=== PATIENT | male | born 1955 | race Caucasian/White ===

== ENCOUNTER 2022-05-14 01:04 | Emergency (ER) | payer OTHER, SELFPAY ==
[2022-05-14 01:05] VITALS: BP 178/88; PULSE 52; RESP 16; TEMP 36.9; O2SAT 100; BMI 21.4
--- NOTE | 2022-05-14 01:18 | EDS_ITS ---
HPI History of Present Illness Chief Complaint: Bite Informant: patient Narrative Narrative: Patient presents with a tick in his right posterior neck. Patient states he went fishing on Sunday. He believes that is when he got the tick bite. It was noted late Sunday night. His daughter tried to remove it but states only part of it was able to be removed. [facility] Medical History (Reviewed 05/14/22 @ 01:[address] Zo Sorto MD) High cholesterol Hypertension Medical History no medical history Home Medications doxycycline monohydrate 100 mg capsule 100 mg PO BID #28 caps 05/14/22 [Rx Last Taken Unknown] lovastatin 40 mg tablet 40 mg PO DAILY 05/14/22 [History Last Taken Unknown] ramipril 5 mg capsule 5 mg PO DAILY 05/14/22 [History Last Taken Unknown] Allergy/AdvReac Type Severity Reaction Status Date / Time No Known Allergies Allergy Verified 05/14/22 01:05 EDT Social History (Reviewed 05/14/22 @ 01:[address] Zo Sorto MD) Smoking Status: Current every day smoker tobacco type: cigarettes ROS ROS ED Constitutional Constitutional ED: Denies chills or fever(s) Eyes Eyes: Denies change in vision or discharge from eye(s) ENT ENT ED: Denies discharge from eye(s), rhinorrhea or sore throat Cardiovascular Cardiovascular: Denies chest pain or palpitations Respiratory/Chest Respiratory/Chest: Denies cough or dyspnea Gastrointestinal Gastrointestinal: Denies abdominal pain, nausea or vomiting Genitourinary Genitourinary ED: Denies dysuria Musculoskeletal Musculoskeletal: Denies back pain or extremity pain Integumentary Reports other Details: Tick bite right posterior neck ; Denies Abrasions or rash Neurologic Neurologic: Denies headache(s) or weakness Psychiatric Psychiatric: Denies anxiety or depression Allergic/Immunologic Allergic/Immunologic ED: Denies lip swelling or urticaria EXAM Physical Exam Const Vital Signs: 05/14/22 01:05 EDT Temperature 98.5 F Temperature Source Oral Pulse Rate 52 L Respiratory Rate 16 Blood Pressure 178/88 H Blood Pressure Mean 118 Pulse Ox 100 Oxygen Delivery Method Room Air Positive well nourished and well developed General Appearance ED: well developed HEENT Reports moist mucous membranes Eyes PERRL and EOMs intact bilaterally Neck Neck Narrative: Small dark discoloration to the right posterior lateral neck. Unfortunately there is a small area of bleeding from prior attempts to remove the tick. Chest Wall inspection of chest normal and palpation of chest normal Resp normal respiratory effort and clear to auscultation bilaterally Cardio regular rate and regular rhythm GI non-tender Palpation: soft Extremity normal to inspection Neuro oriented x3 and no sensory deficits noted Motor Exam: strength 5/5 throughout Psych mental status grossly normal MDM MDM Treatment and Re-Evaluation Narrative: 1 cc 1% lidocaine infused locally to the site. Following this needle-tipped forceps were used to grab any remaining tissue and remove it. Wound is cleansed. Patient be treated with doxycycline to help prevent infection. Discharge Plan Triage Chief Complaint: Bite ED Provider: Zo Sorto Dx/Rx/DC Orders Clinical Impression: Tick bite Instructions: ED Tick Bite, Abx Tx Prescriptions: New doxycycline monohydrate 100 mg capsule 100 mg PO BID Qty: 28 0RF No Action lovastatin 40 mg Tablet 40 mg PO DAILY ramipril 5 mg Capsule 5 mg PO DAILY Primary Care Provider: [facility] Referrals: Benji Morton MD [Non-Staff] - 1-2 Weeks Disposition Disposition: Home, Self Care
[2022-05-14] MEDS: Lidocaine 1% (20 ml mdv) 20 ML Vial INFILT (01:22)
[2022-05-14 01:35] VITALS: O2SAT 98
[2022-05-14] MEDS: Doxycycline 100 MG CAPSULE PO (01:38)
== END 2022-05-14 01:38 | disposition home or self-care (01) ==
PROVIDERS: Emergency Provider Emergency Medicine; Visit Provider Emergency Medicine
DX: S10.86XA Insect bite of other specified part of neck, initial encounter (principal); I10 Essential (primary) hypertension; F17.210 Nicotine dependence, cigarettes, uncomplicated; E78.00 Pure hypercholesterolemia, unspecified; Z79.899 Other long term (current) drug therapy; W57.XXXA Bitten or stung by nonvenomous insect and other nonvenomous arthropods, initial encounter
CPT/HCPCS: 99283

== ENCOUNTER 2022-08-13 17:37 | Inpatient (IN) | payer OTHER, SELFPAY ==
[2022-08-13 17:38] VITALS: BP 147/91; PULSE 98; RESP 19; TEMP 35.9; O2SAT 99; BMI 22.3
--- NOTE | 2022-08-13 19:34 | EX.ED.DYSGE1 ---
HPI <MARANDA Prasad - Last Filed: 08/13/22 22:05> History of Present Illness Chief Complaint: GI Bleed Narrative Narrative: Patient states he ate a fish sandwich last night and woke up around 2 AM started to have diarrhea. He is nauseous but no vomiting. He had diarrhea throughout the day and around 5 PM noticed bright red blood with it. No clots or mucus. He has some intermittent crampy abdominal pain. He has had decreased fluid intake. He is not on aspirin or blood thinners. Reports a normal colonoscopy 10 years ago. PFSH <MARANDA Prasad - Last Filed: 08/13/22 22:05> [facility] Medical History (Reviewed 05/14/22 @ 01:[address] Zo Sorto MD) High cholesterol Hypertension Medical History no medical history Home Medications lovastatin 40 mg tablet 40 mg PO DAILY 05/14/22 [History Last Taken Unknown] ramipril 5 mg capsule 5 mg PO DAILY 05/14/22 [History Last Taken Unknown] Allergy/AdvReac Type Severity Reaction Status Date / Time No Known Allergies Allergy Verified 08/13/22 17:41 Social History (Reviewed 05/14/22 @ 01:[address] Zo Sorto MD) Smoking Status: Current every day smoker tobacco type: cigarettes ROS <MARANDA Prasad - Last Filed: 08/13/22 22:05> ROS ED ROS Narrative Constitutional: Negative for fever, chills, malaise. CVS: Negative for palpitations, chest pain, syncope. Respiratory: Negative for shortness of breath, cough. GI: Positive for abdominal pain, nausea, rectal bleeding. No melena. : Negative for dysuria. Skin: Negative for rash, abscess, or wound. Musc: Negative for joint pain, swelling, trauma. EXAM <MARANDA Prasad - Last Filed: 08/13/22 22:05> Physical Exam Narrative Exam Narrative: CONST: Patient sitting in no acute distress. NECK: Normal inspection. RESP: No respiratory distress, CTAB. CVS: Regular rate and rhythm, no murmur, no gallop. ABD: Soft With bilateral lower quadrant tenderness, no guarding or rebound, nondistended. Normal bowel sounds x4. SKIN: Color normal, no rash, warm, dry, intact. EXTREMITIES: Normal appearance, no pedal edema. NEURO: Oriented x4. PSYCH: Normal affect. Const Vital Signs: 08/13/22 17:38 08/13/22 19:37 08/13/22 21:37 Temperature 96.7 F L Temperature Source Temporal Pulse Rate 98 Respiratory Rate 19 H 18 18 Blood Pressure 147/91 H Blood Pressure Mean 109 Pulse Ox 99 Oxygen Delivery Method Room Air <Dr. Emerson Rodriguez MD - Last Filed: 08/13/22 22:37> Physical Exam Const Vital Signs: 08/13/22 17:38 08/13/22 19:37 08/13/22 21:37 Temperature 96.7 F L Temperature Source Temporal Pulse Rate 98 Respiratory Rate 19 H 18 18 Blood Pressure 147/91 H Blood Pressure Mean 109 Pulse Ox 99 Oxygen Delivery Method Room Air MDM <MARANDA Prasad - Last Filed: 08/13/22 22:05> MDM MDM Narrative Medical decision making narrative: History gathered from: Patient, Patient thinks he ate bad food last night and has had nausea and diarrhea throughout the day. He started having bright red rectal bleeding and some diffuse crampy abdominal pain. He appears well and nontoxic with normal vital signs. He has mild bilateral lower quadrant tenderness but no guarding or rebound. Normal bowel sounds. On rectal exam there was trace bright red blood but no stool present. No active bleeding. He was treated with IV fluids and blood work will be obtained to check for anemia or electrolyte derangement. CBC shows white count of 13.0, normal hemoglobin at 15.0. He has normal electrolytes and renal function. During the attendings evaluation he used an anoscope and the patient started to have more brisk bright red bleeding. A CT scan will be obtained along with a lactate to rule out ischemic colitis. CT shows colitis of the descending colon with no evidence of perforation or abscess. With continued abdominal pain and rectal bleeding this is concerning for early ischemic colitis. Patient was treated with IV fluids, Zosyn, morphine and Zofran and will be admitted. Case discussed with the hospitalist. Lab Data Attestation: I reviewed the patient's lab results. Labs: Laboratory Results - last 24 hr 08/13/22 08/13/22 08/13/22 19:29 19:29 20:48 WBC 13.0 H RBC 4.71 Hgb 15.0 Hct 45.4 MCV 96.4 H MCH 31.8 MCHC 33.0 RDW Std Deviation 46.2 H RDW Coeff of Tasha 12.8 Plt Count 297 MPV 10.7 Immature Gran % (Auto) 0.500 Neut % (Auto) 64.5 Lymph % (Auto) 25.5 [place] % (Auto) 7.8 Eos % (Auto) 1.1 Baso % (Auto) 0.6 Absolute Neuts (auto) 8.4 H Absolute Lymphs (auto) 3.31 Nucleated RBC % 0 Sodium 141 Potassium 3.6 Chloride 108 H Carbon Dioxide 26.0 Anion Gap 7 BUN 11 Creatinine 0.98 Estim Creat Clear Calc 77.14 Est GFR (MDRD) Af Amer 99 Est GFR (MDRD) Non-Af 82 BUN/Creatinine Ratio 11.3 Glucose 102 Lactic Acid 1.0 Calcium 9.3 Radiography Diagnostic Testing: Clinical Impression(s) from Imaging Studies Abdomen/Pelvis CT 08/13/22 20:15 IMPRESSION: Findings of a colitis affecting the descending colon, moderate in severity. No evidence for perforation or abscess. No active extravasation of IV contrast into the bowel lumen. Electronically Signed: Herbie Jimenez MD at 21:54 EST , <Dr. Emerson Rodriguez MD - Last Filed: 08/13/22 22:37> [facility] Narrative Medical decision making narrative: History gathered from: Patient, Patient thinks he ate bad food last night and has had nausea and diarrhea throughout the day. He started having bright red rectal bleeding and some diffuse crampy abdominal pain. He appears well and nontoxic with normal vital signs. He has mild bilateral lower quadrant tenderness but no guarding or rebound. Normal bowel sounds. On rectal exam there was trace bright red blood but no stool present. No active bleeding. He was treated with IV fluids and blood work will be obtained to check for anemia or electrolyte derangement. CBC shows white count of 13.0, normal hemoglobin at 15.0. He has normal electrolytes and renal function. During the attendings evaluation he used an anoscope and the patient started to have more brisk bright red bleeding. A CT scan will be obtained along with a lactate to rule out ischemic colitis. CT shows colitis of the descending colon with no evidence of perforation or abscess. With continued abdominal pain and rectal bleeding this is concerning for early ischemic colitis. Patient was treated with IV fluids, Zosyn, morphine and Zofran and will be admitted. Case discussed with the hospitalist. Deep I have personally performed a face to face assessment of the patient and have reviewed the ANTONIA Note. I performed a substantive portion of the visit including all aspects of the following. My kessler findings include: History is remarkable for diarrhea. He then developed lower abdominal pain with bloody diarrhea. Patient does have history of hemorrhoids. He has not noted any clots. He denies history of ulcerative colitis or Crohn's disease. He denies fever or chills. He does endorse nausea without vomiting. He is not on an anticoagulant. He denies allergy to any antibiotics. Exam is elevated blood pressure reading and temperature 96.7. HEENT exams rectal dry mucosa. Patient does have bilateral lower quadrant bowel pain with mild guarding. There is no peritoneal findings. Rectal exam revealed no fissures, fistulas or hemorrhoids. Anoscopy was performed. Anoscopy reveals no evidence of acute hemorrhoids. There was bloody mucoid material noted about the scope and poured out of his rectum. Medical Decision Making concern patient has ischemic colitis. This may also represent infectious diarrhea with colitis. Will treat with Zosyn. CT was obtained. Blood work was obtained as well. White count is elevated. There is no shift. CO2 anion gap is normal. Renal functions normal. Lactate is normal. Other additions or changes: Dr. Gallito Thompson was consulted and the hospitalist made aware. Patient be admitted to the hospitalist. Dr. Gallito Thompson requested n.p.o. and to continue antibiotics. Lab Data Labs: Laboratory Results - last 24 hr 08/13/22 08/13/22 08/13/22 19:29 19:29 20:48 WBC 13.0 H RBC 4.71 Hgb 15.0 Hct 45.4 MCV 96.4 H MCH 31.8 MCHC 33.0 RDW Std Deviation 46.2 H RDW Coeff of Tasha 12.8 Plt Count 297 MPV 10.7 Immature Gran % (Auto) 0.500 Neut % (Auto) 64.5 Lymph % (Auto) 25.5 [place] % (Auto) 7.8 Eos % (Auto) 1.1 Baso % (Auto) 0.6 Absolute Neuts (auto) 8.4 H Absolute Lymphs (auto) 3.31 Nucleated RBC % 0 Sodium 141 Potassium 3.6 Chloride 108 H Carbon Dioxide 26.0 Anion Gap 7 BUN 11 Creatinine 0.98 Estim Creat Clear Calc 77.14 Est GFR (MDRD) Af Amer 99 Est GFR (MDRD) Non-Af 82 BUN/Creatinine Ratio 11.3 Glucose 102 Lactic Acid 1.0 Calcium 9.3 Radiography Diagnostic Testing: Clinical Impression(s) from Imaging Studies Abdomen/Pelvis CT 08/13/22 20:15 IMPRESSION: Findings of a colitis affecting the descending colon, moderate in severity. No evidence for perforation or abscess. No active extravasation of IV contrast into the bowel lumen. Electronically Signed: Herbie Jimenez MD at 21:54 EST Reading Location ID and State: [address] [place] [address] Tel , Service support , <Dr. Emerson Rodriguez MD - Last Filed: 08/13/22 22:37> Other Procedures Procedure(s): Anoscope was performed. There is no evidence of bleeding from hemorrhoids. Blood was above the anoscope. The rectal mucosa appeared normal. Discharge Plan Triage Chief Complaint: GI Bleed ED Midlevel Provider: Yuki Lama ED Provider: Emerson Rodriguez Dx/Rx/DC Orders Clinical Impression: Colitis with rectal bleeding, Abdominal pain Prescriptions: No Action lovastatin 40 mg Tablet 40 mg PO DAILY ramipril 5 mg Capsule 5 mg PO DAILY [facility] [Primary Care Provider] - Disposition Disposition: Acute Care Hospital [facility]
[2022-08-13 19:37] VITALS: RESP 18
[2022-08-13 19:41] LABS: Absolute Lymphocyte Count 3.31 X10^3/uL (0.83-4.51); Absolute Neutrophil Count 8.4 X10^3/uL (2.0-7.7); Basophil# 0.08 X10^3/uL; Basophil% 0.6 % (0-1); Eosinophil# 0.14 X10^3/uL; Eosinophils% 1.1 % (0-5); Hematocrit 45.4 % (40-54); Lymphocyte # 3.31 X10^3/ul (0.83-4.51); Lymphocyte % 25.5 % (19-41); Mean Corpuscular Hgb 31.8 pg (27.0-32.0); Mean Corpuscular Volume 96.4 fL (80-94); Mean Platelet Vol. 10.7 fl (6.2-12.0); Monocyte# 1.01 X10^3/uL; Monocyte% 7.8 % (0-10); NRBC Flagged by Analyzer 0 % (0-5); Neutrophil % 64.5 % (47-70); Platelet Count 297 K/mm3 (150-450); RBC Distribution Width CV 12.8 % (11.6-14.6); RBC Distribution Width SD 46.2 fl (35.1-43.9); Red Blood Count 4.71 M/mm3 (4.6-6.2)
[2022-08-13 20:05] LABS: Anion Gap 7 (5-15); BUN 11 mg/dL (7-18); BUN/Creat Ratio 11.3 RATIO (10-20); Calcium,Total 9.3 mg/dL (8.5-10.1); Chloride 108 mmol/L (98-107); Creatinine, Serum 0.98 mg/dL (0.70-1.30); EST Glomerular Filtration Rate 82 mL/min (>60); Est Glom Filt Rate - Afr Amer 99 mL/min (>60); Estimated Creatinine Clearance 77.14 ml/min; Glucose 102 mg/dL (74-106); Potassium 3.6 mmol/L (3.5-5.1); Sodium Level 141 mmol/L (136-145)
--- NOTE | 2022-08-13 20:15 | CT_ITS ---
EXAM: CT ABDOMEN AND PELVIS WITH INTRAVENOUS CONTRAST CLINICAL INDICATION: abdominal pain TECHNIQUE: Helically acquired images were obtained of the abdomen and pelvis with intravenous contrast. This CT exam was performed using one or more of the following dose reduction techniques: automated exposure control, adjustment of the mA and/or kV according to patient size, and/or use of iterative reconstruction technique. This report was created using [employer] report generation technology. CONTRAST: IV 100mL Isovue-370 RADIATION DOSE: Total DLP: 671.03 mGy-cm. COMPARISON: None. FINDINGS: LOWER THORAX: Evaluation of lung bases shows mild pulmonary emphysema and minimal dependent atelectasis. Minimal subpleural fibrotic changes in the lingula and right middle lobe. No pleural effusion. Mild coronary artery calcification is visualized. No significant pericardial effusion. ABDOMEN: LIVER: Mild-moderate fatty infiltration of the liver. Right hepatic lobe measures 17 cm in cephalocaudal dimension. The portal veins enhance normally. GALLBLADDER AND BILE DUCTS: Unremarkable. No calcified gallstones. No gallbladder distention or wall edema. No intra- or extrahepatic biliary ductal dilation. PANCREAS: Unremarkable. No focal cystic or solid mass. SPLEEN: Unremarkable. Normal size without focal cystic or solid mass. ADRENALS: Unremarkable. No nodules. KIDNEYS AND URETERS: Unremarkable. Normal renal size and position. No hydronephrosis. No renal or obstructing ureteral stones. STOMACH AND BOWEL: No gastric mural thickening, periduodenal inflammatory changes or distended small bowel loops. There is circumferential hypodense thickening of the wall of the descending colon, with the wall being moderately thickened, nodular and edematous, and with mild pericolonic stranding indicating a left-sided colitis. No pneumatosis or extraluminal air. No nonenhancing bowel wall. No findings of diverticulitis or small bowel obstruction. PELVIS: APPENDIX: Normal. No evidence of acute appendicitis. BLADDER: No bladder wall thickening. REPRODUCTIVE: Prostate gland measures 4 cm in transverse diameter and minimally indents the base of the urinary bladder. ABDOMEN and PELVIS: INTRAPERITONEAL SPACE: No free air or ascites. BONES/JOINTS: T10/11 disc space is partially fused. Lower thoracic and lumbar degenerative disc disease. Lower lumbar facet arthritis. No suspicious lytic or blastic abnormality. SOFT TISSUES: Unremarkable. No discrete abdominal or pelvic wall hernia. VASCULATURE: Calcific abdominal aorta and its branches. Calcified and noncalcified plaque causes 50-69% stenosis of the SMA. CJ enhances normally. LYMPH NODES: Unremarkable. No enlarged lymph nodes. CT/Abdomen/Pelvis W IV Cont ONLY IMPRESSION: Findings of a colitis affecting the descending colon, moderate in severity. No evidence for perforation or abscess. No active extravasation of IV contrast into the bowel lumen. Electronically Signed: Herbie Jimenez MD at 21:54 EST ,
[2022-08-13] MEDS: 0.9% Normal Saline 1,000 ML 999 ML IV (21:21)
[2022-08-13 21:37] VITALS: RESP 18
[2022-08-13] MEDS: Ondansetron 4 MG/2 ML Vial IV (22:22)
[2022-08-13] MEDS: Morphine 4 MG/ML Syringe IV (22:22)
[2022-08-13 22:23] VITALS: BP 133/70; PULSE 68; RESP 18; TEMP 36.4; O2SAT 95
--- NOTE | 2022-08-13 22:29 | PCM.HP.STD ---
HPI - General General Date of Admission: 08/13/22 Date of Service: 08/13/22 Chief Complaint: Bloody stools - 1 day HPI Narrative KELLI ÁLVAREZ, is a 67 M who presents with the above. Patient has past medical history of hypertension, hyperlipidemia, chronic smoker, who was in his usual state of health until today when he started having bloody stools associated with abdominal cramps. Patient stated that yesterday he and his had fish sandwiches. This morning, he started having abdominal cramps and started having bloody stools. He denied any fever or chills. His has no symptoms. He denied nausea, vomiting, dizziness or palpitations or chest pain or progressive shortness of breath. Emergency room physician performed an anoscopy that showed no evidence of internal hemorrhoids. Bloody mucoid material was also noted around the scope and pulled out of his rectum. In the emergency room, blood pressure is 147/91, heart rate 98 respiratory rate was 19, temperature 96.7 F, oxygen sat is 97% on room air. WBC count is 13.0, with neutrophilia, hemoglobin 15.0, platelet count 297. BMP is unremarkable with BUN 11, Cr 0.98. CT of the abdomen pelvis shows mild pulmonary emphysema/atelectasis, mild/moderate fatty infiltration of the liver, thickening of the descending colon with stranding suggestive of left-sided colitis. [facility] Medical History High cholesterol Hypertension Home Medications lovastatin 40 mg tablet 40 mg PO DAILY 05/14/22 [History Last Taken Unknown] ramipril 5 mg capsule 5 mg PO DAILY 05/14/22 [History Last Taken Unknown] Allergy/AdvReac Type Severity Reaction Status Date / Time No Known Allergies Allergy Verified 08/13/22 17:41 Family History (Updated 08/14/22 @ 00:[address] Shanel Barrera MD) Father Heart disease Mother CVA (cerebral vascular accident) Surgical History no surgical history no surgical history Social History (Updated 08/14/22 @ 00:[address] Shanel Barrera MD) household members: spouse Smoking Status: Current every day smoker tobacco type: cigarettes alcohol intake: never substance use type: does not use ROS ROS Narrative Constitutional: Denies: Anorexia, Chills, Fever, Night Sweats, Weight Change Eyes: Denies: Blurred vision, Cataracts, Conjunctivae Inflammation, Pain, Redness, Vision Change HEENT: Denies: Difficulty Hearing, Difficulty Swallowing, Head Aches, Hearing Changes, Sinus Congestion, Sinus Drainage Cardiovascular: Denies: Chest Pain, Orthopnea, Palpitations Respiratory: Denies: Cough, Shortness of breath at rest, Sputum production Gastrointestinal: See HPI Genitourinary: Denies: Dysuria Musculoskeletal: Denies: Joint Pain, Joint stiffness, Joint swelling, Joint Tenderness Skin: Denies: Rash, Wounds Neurological: Denies: Numbness, Tingling, Focal weakness Vital Signs Vital Signs Vital Signs: 08/13/22 17:38 08/13/22 19:37 08/13/22 21:37 Temperature 96.7 F L Temperature Source Temporal Pulse Rate 98 Respiratory Rate 19 H 18 18 Blood Pressure 147/91 H Blood Pressure Mean 109 Pulse Ox 99 Oxygen Delivery Method Room Air Weight Weight: 72.575 kg Body Mass Index (BMI) 22.3 Physical Exam Narrative Physical exam: General: Alert, Oriented x3, Cooperative HEENT: Atraumatic Oral: Moist Mucosa Neck: Supple Lungs: Clear to auscultation Cardiovascular: HS I+II, regular, no murmurs Abdomen: Bowel Sounds Present, Soft, Non Tender Extremities: No edema Skin: No rashes, No breakdown Neurological: Grossly intact Psych/Mental Status: Appropriate Results Lab / Micro Data Result Diagrams: 08/13/22 19:29 08/13/22 19:29 Labs: Laboratory Results - last 24 hr 08/13/22 19:29: WBC 13.0 H, RBC 4.71, Hgb 15.0, Hct 45.4, MCV 96.4 H, MCH 31.8, MCHC 33.0, RDW Std Deviation 46.2 H, RDW Coeff of Tasha 12.8, Plt Count 297, MPV 10.7, Immature Gran % (Auto) 0.500, Neut % (Auto) 64.5, Lymph % (Auto) 25.5, [place] % (Auto) 7.8, Eos % (Auto) 1.1, Baso % (Auto) 0.6, Absolute Neuts (auto) 8.4 H, Absolute Lymphs (auto) 3.31, Nucleated RBC % 0 08/13/22 19:29: Sodium 141, Potassium 3.6, Chloride 108 H, Carbon Dioxide 26.0, Anion Gap 7, BUN 11, Creatinine 0.98, Estim Creat Clear Calc 77.14, Est GFR (MDRD) Af Amer 99, Est GFR (MDRD) Non-Af 82, BUN/Creatinine Ratio 11.3, Glucose 102, Calcium 9.3 08/13/22 20:48: Lactic Acid 1.0 Radiology Impression Abdomen/Pelvis CT 08/13/22 20:15 IMPRESSION: Findings of a colitis affecting the descending colon, moderate in severity. No evidence for perforation or abscess. No active extravasation of IV contrast into the bowel lumen. Electronically Signed: Herbie Jimenez MD at 21:54 EST , Assessment & Plan Assessment/Plan (1) Colitis with rectal bleeding: (2) Abdominal pain: PLAN: Plan 1. Acute lower GI secondary to acute left sided colitis Seen on CT abdomen/pelvis. Hemoglobin is 15.0. Differentials include infectious etiologies, ischemic colitis versus inflammatory bowel disease Admit to PCU, IV fluids, general surgery?consulted from the ED, stool for enteric panel, Giardia, lactoferrin to rule out infectious etiology Keep n.p.o., trend H&H, IV PPI BID, Continue IV Zosyn started in ED 2. Hyperlipidemia, continue on statin 3. Hypertension, BP is relatively controlled, will hold Ramipril for now Will monitor BP 4. Chronic smoker, advised to quit, continue replacement 5. DVT PPx- SCDs Total time spent: 75 minutes of which more > 50% was spent in taking history and physical examining patient, discussing with emergency room physician, discussing plan of care, and answering questions from patient and at the bedside. Charges/Coding Visit Charges Inpatient E&M: 61177 Init Hosp L3
[2022-08-14 00:30] VITALS: BMI 22.0
[2022-08-14] MEDS: 0.9% Normal Saline 1,000 ML 125 ML IV (00:54)
[2022-08-14 01:05] VITALS: BP 122/70; PULSE 52; RESP 18; TEMP 36.6; O2SAT 94
[2022-08-14 03:44] LABS: Basophil# 0.07 X10^3/uL; Basophil% 0.6 % (0-1); Eosinophil# 0.28 X10^3/uL; Eosinophils% 2.6 % (0-5); Hematocrit 39.7 % (40-54); Hemoglobin 13.1 g/dL (13.0-16.5); Lymphocyte % 31.5 % (19-41); Mean Corpuscular Volume 96.8 fL (80-94); Mean Platelet Vol. 10.8 fl (6.2-12.0); Monocyte% 9.3 % (0-10); NRBC Flagged by Analyzer 0 % (0-5); Neutrophil # 5.98 X10^3/uL (2.7-7.7); Neutrophil % 55.5 % (47-70); Platelet Count 250 K/mm3 (150-450); RBC Distribution Width CV 12.9 % (11.6-14.6); RBC Distribution Width SD 45.6 fl (35.1-43.9); White Blood Count 10.8 K/mm3 (4.4-11.0)
[2022-08-14 04:03] LABS: AST(SGOT) 10 U/L (15-37); Alanine Aminotransfer ALT/SGPT 21 U/L (16-61); Albumin, Serum 3.1 g/dL (3.2-5.0); Alkaline Phosphatase 61 U/L (45-117); Anion Gap 5 (5-15); BUN 9 mg/dL (7-18); BUN/Creat Ratio 10.2 RATIO (10-20); Calcium,Total 8.3 mg/dL (8.5-10.1); Chloride 114 mmol/L (98-107); Creatinine, Serum 0.89 mg/dL (0.70-1.30); EST Glomerular Filtration Rate 92 mL/min (>60); Est Glom Filt Rate - Afr Amer 111 mL/min (>60); Estimated Creatinine Clearance 83.92 ml/min; Glucose 95 mg/dL (74-106); Protein, Total 6.1 g/dL (6.4-8.2); Sodium Level 143 mmol/L (136-145)
[2022-08-14 05:49] VITALS: BP 108/60; PULSE 50; RESP 18; TEMP 36.4; O2SAT 98
--- NOTE | 2022-08-14 07:37 | EX.PCM.CON.S ---
Assessment & Plan Assessment/Plan (1) Colitis with rectal bleeding: PLAN: Patient has CT scan which showed left-sided colitis and the patient has been having rectal bleeding for 1 day. Patient does not have any abdominal pain on palpation for me. I explained that this is likely ischemic colitis given the calcifications of the takeoff of his vessels. I recommend 24 hours of bowel rest and then likely start clear liquids tomorrow. I advised him that we will also continue antibiotics for prophylaxis and continue to observe. I did discuss possible surgery if anything were to worsen. Patient says he is due for colonoscopy and I will provide an outpatient colonoscopy in a few weeks as long as is resolved successfully. Recommend n.p.o. for today and start clear liquids tomorrow if doing well. Continue to observe hemoglobin. Meek Thompson MD Pager: [facility] [address] [place] [address], [address] [place] [address] Office: HPI Consult Data Date of Consult: 08/14/22 HPI Narrative HPI Narrative: KELLI ÁLVAREZ, is a 67 M who presents with blood per rectum. The patient does not note any abdominal pain. He says the blood started yesterday. He has never had this in the past. He denies any nausea or vomiting or fevers or chills. [facility], [facility] Medical History High cholesterol Hypertension Home Medications lovastatin 40 mg tablet 40 mg PO DAILY 05/14/22 [History Last Taken Unknown] ramipril 5 mg capsule 5 mg PO DAILY 05/14/22 [History Last Taken Unknown] Allergy/AdvReac Type Severity Reaction Status Date / Time No Known Allergies Allergy Verified 08/13/22 17:41 Family History (Updated 08/14/22 @ 00:[address] Shanel Barrera MD) Father Heart disease Mother CVA (cerebral vascular accident) Surgical History no surgical history Social History (Updated 08/14/22 @ 00:[address] Shanel Barrera MD) household members: spouse Smoking Status: Current every day smoker tobacco type: cigarettes alcohol intake: never substance use type: does not use ROS Constitutional Constitutional: Denies anorexia, chills or fatigue ENT HEENT: Denies abnormal hearing Cardiovascular Cardiovascular: Denies chest pain Respiratory/Chest Respiratory/Chest: Denies cough or dyspnea Gastrointestinal Gastrointestinal: Reports rectal bleeding; Denies abdominal pain, constipation, diarrhea, nausea or vomiting Genitourinary Genitourinary: Denies change in urinary stream Musculoskeletal Musculoskeletal: Denies abnormal gait Integumentary Integumentary: Denies jaundice Neurologic Neurologic: Denies abnormal gait Psychiatric Psychiatric: Denies anxiety Endocrine Endocrinology: Denies flushing Physical Exam Const alert and oriented x3 HEENT normocephalic Eyes PERRL Resp normal respiratory effort Cardio Rate: regular rate Rhythm: regular rhythm GI soft to palpation, non-tender and non-distended Lab / Micro Data Result Diagrams: 08/14/22 03:05 08/14/22 03:05 Labs: Laboratory Results - last 24 hr 08/13/22 19:29: WBC 13.0 H, RBC 4.71, Hgb 15.0, Hct 45.4, MCV 96.4 H, MCH 31.8, MCHC 33.0, RDW Std Deviation 46.2 H, RDW Coeff of Tasha 12.8, Plt Count 297, MPV 10.7, Immature Gran % (Auto) 0.500, Neut % (Auto) 64.5, Lymph % (Auto) 25.5, [place] % (Auto) 7.8, Eos % (Auto) 1.1, Baso % (Auto) 0.6, Absolute Neuts (auto) 8.4 H, Absolute Lymphs (auto) 3.31, Nucleated RBC % 0 08/13/22 19:29: Sodium 141, Potassium 3.6, Chloride 108 H, Carbon Dioxide 26.0, Anion Gap 7, BUN 11, Creatinine 0.98, Estim Creat Clear Calc 77.14, Est GFR (MDRD) Af Amer 99, Est GFR (MDRD) Non-Af 82, BUN/Creatinine Ratio 11.3, Glucose 102, Calcium 9.3 08/13/22 20:48: Lactic Acid 1.0 08/14/22 03:05: WBC 10.8, RBC 4.10 L, Hgb 13.1, Hct 39.7 L, MCV 96.8 H, MCH 32.0, MCHC 33.0, RDW Std Deviation 45.6 H, RDW Coeff of Tasha 12.9, Plt Count 250, MPV 10.8, Immature Gran % (Auto) 0.500, Neut % (Auto) 55.5, Lymph % (Auto) 31.5, [place] % (Auto) 9.3, Eos % (Auto) 2.6, Baso % (Auto) 0.6, Absolute Neuts (auto) 6.0, Absolute Lymphs (auto) 3.40, Nucleated RBC % 0 08/14/22 03:05: Sodium 143, Potassium 4.0, Chloride 114 H, Carbon Dioxide 24.0, Anion Gap 5, BUN 9, Creatinine 0.89, Estim Creat Clear Calc 83.92, Est GFR (MDRD) Af Amer 111, Est GFR (MDRD) Non-Af 92, BUN/Creatinine Ratio 10.2, Glucose 95, Calcium 8.3 L, Total Bilirubin 0.60, AST 10 L, ALT 21, Alkaline Phosphatase 61, Total Protein 6.1 L, Albumin 3.1 L, Globulin 3.0, Albumin/Globulin Ratio 1.0 Radiology Impression Abdomen/Pelvis CT 08/13/22 20:15 IMPRESSION: Findings of a colitis affecting the descending colon, moderate in severity. No evidence for perforation or abscess. No active extravasation of IV contrast into the bowel lumen. Electronically Signed: Herbie Jimenez MD at 21:54 EST ,
--- NOTE | 2022-08-14 08:06 | PCM.PN.HOSP ---
Subjective Subjective Mr. Sun is a 67-year-old white male who presented to the emergency department on 08/13/2022 with a bloody stool x1 day. Patient evidently ate a fish sandwich the day prior to presentation and on the morning of presentation he started having abdominal cramping and bloody stools. He denied any fever or chills and his has had no symptoms. She evidently ate the same sandwiches. An anoscopy was performed in the emergency department that showed no evidence of internal hemorrhoids but bloody mucoid material was noted around the scope when pulled out of his rectum. Vital signs were unremarkable on presentation and his hemoglobin was 15. A CT of his abdomen pelvis showed mild pulmonary emphysematous changes and atelectasis along with mild to moderate fatty infiltration of his liver and thickening of his descending colon with stranding suggestive of left-sided colitis. General surgery was consulted and suspect that this is most likely ischemic colitis given the calcifications noted at his takeoff vessels to his colon. They have recommended 24 hours of bowel rest with likely initiation of clear liquid diet tomorrow. He was started on Zosyn and outpatient colonoscopy was recommended after stabilized. His hemoglobin has remained stable through the night. His leukocytosis has resolved and his labs are otherwise unremarkable. Today, the patient states that his abdominal pain is improved. He has had no further rectal bleeding. He did indicate that his starts treatment for cancer on Sunday and wants to make sure he is home much before then if possible. I did assure him that most likely will be able to discharge him prior to that. Objective Data Objective Data Vital Signs: Vital Signs Temp Pulse Resp BP Pulse Ox O2 Del Method 97.6 F L 50 L 18 108/60 98 Room Air 08/14/22 05:49 08/14/22 05:49 08/14/22 05:49 08/14/22 05:49 08/14/22 05:49 08/14/22 05:49 Oxygen Delivery Method Room Air Weight: 72 kg Body Mass Index (BMI) 22.0 Intake & Output: Intake and Output for Last 24 Hours 08/12/22 08/13/22 08/14/22 23:59 23:59 23:59 Intake Total 1000 / 1000 30.00 / 30.00 Balance 1000 / 1000 30.00 / 30.00 Lab / Micro Data Result Diagrams: 08/14/22 03:05 08/14/22 03:05 Labs: Laboratory Results - last 24 hr 08/13/22 19:29: WBC 13.0 H, RBC 4.71, Hgb 15.0, Hct 45.4, MCV 96.4 H, MCH 31.8, MCHC 33.0, RDW Std Deviation 46.2 H, RDW Coeff of Tasha 12.8, Plt Count 297, MPV 10.7, Immature Gran % (Auto) 0.500, Neut % (Auto) 64.5, Lymph % (Auto) 25.5, [place] % (Auto) 7.8, Eos % (Auto) 1.1, Baso % (Auto) 0.6, Absolute Neuts (auto) 8.4 H, Absolute Lymphs (auto) 3.31, Nucleated RBC % 0 08/13/22 19:29: Sodium 141, Potassium 3.6, Chloride 108 H, Carbon Dioxide 26.0, Anion Gap 7, BUN 11, Creatinine 0.98, Estim Creat Clear Calc 77.14, Est GFR (MDRD) Af Amer 99, Est GFR (MDRD) Non-Af 82, BUN/Creatinine Ratio 11.3, Glucose 102, Calcium 9.3 08/13/22 20:48: Lactic Acid 1.0 08/14/22 03:05: WBC 10.8, RBC 4.10 L, Hgb 13.1, Hct 39.7 L, MCV 96.8 H, MCH 32.0, MCHC 33.0, RDW Std Deviation 45.6 H, RDW Coeff of Tasha 12.9, Plt Count 250, MPV 10.8, Immature Gran % (Auto) 0.500, Neut % (Auto) 55.5, Lymph % (Auto) 31.5, [place] % (Auto) 9.3, Eos % (Auto) 2.6, Baso % (Auto) 0.6, Absolute Neuts (auto) 6.0, Absolute Lymphs (auto) 3.40, Nucleated RBC % 0 08/14/22 03:05: Sodium 143, Potassium 4.0, Chloride 114 H, Carbon Dioxide 24.0, Anion Gap 5, BUN 9, Creatinine 0.89, Estim Creat Clear Calc 83.92, Est GFR (MDRD) Af Amer 111, Est GFR (MDRD) Non-Af 92, BUN/Creatinine Ratio 10.2, Glucose 95, Calcium 8.3 L, Total Bilirubin 0.60, AST 10 L, ALT 21, Alkaline Phosphatase 61, Total Protein 6.1 L, Albumin 3.1 L, Globulin 3.0, Albumin/Globulin Ratio 1.0 Radiography Diagnostic Testing: Radiology Impression Abdomen/Pelvis CT 08/13/22 20:15 IMPRESSION: Findings of a colitis affecting the descending colon, moderate in severity. No evidence for perforation or abscess. No active extravasation of IV contrast into the bowel lumen. Electronically Signed: Herbie Jimenez MD at 21:54 EST , Physical Exam Const alert, oriented x3 and no apparent distress Constitutional Narrative: Very pleasant, middle upper age white male, appears comfortable nontoxic, watching television HEENT head/scalp atraumatic and moist oral mucous membranes HEENT Narrative: Dentures in place, Mallampati 2, no thrush Head and Scalp: normocephalic Resp normal respiratory effort, no retractions, no use of accessory muscles and clear to auscultation bilaterally Resp Narrative: Diffusely diminished but clear Auscultation: Negative for crackles, rhonchi or wheezes Cardio regular rate, regular rhythm, S1 normal heart sound, S2 normal heart sound, no murmurs, no rub, no gallops and no clicks GI normal to inspection, nondistended, normoactive bowel sounds and soft to palpation; Negative for non-tender GI Narrative: Mild tenderness most notably in the left lower quadrant Palpation: tender Extremity no clubbing, cyanosis or edema Extremity Narrative: 2+ pedal pulses Neuro oriented x3, moves all extremities and no focal motor deficits Speech: speech normal Assessment & Plan Assessment/Plan (1) Colitis with rectal bleeding: (2) Abdominal pain: (3) Leukocytosis: PLAN: Plan Acute colitis with rectal bleeding -CT of the abdomen pelvis shows left-sided colitis -Patient had rectal bleeding for 1 day prior to presentation -Hemoglobin is stable without any anemia. Ischemic colitis is suspected -Patient is currently on bowel rest for the next 24 hours with likely initiation of clear liquid diet tomorrow -Continue IV fluids at 125 cc/h but will convert from normal saline to LR -Continue IV antibiotics as ordered and patient will likely need oral antibiotics at discharge -Outpatient colonoscopy will be pursued after discharge -General surgery following-appreciate input Abdominal pain -Improving -Continue as needed medication for pain relief Leukocytosis -Likely reactive -Now resolved Hypertension -Home ramipril on hold -As needed hydralazine for systolic pressure greater than 07/14/1979 Hyperlipidemia -Therapeutic substitution for home lovastatin with atorvastatin 10 mg daily Suspected COPD -Patient with evidence edematous changes on CAT scan -Recommend outpatient pulmonary follow-up with outpatient PFTs Tobacco abuse -Recommend cessation -Nicotine patch available if needed DVT prophylaxis -SCDs for now -deferred secondary to rectal bleeding on presentation Charges/Coding Visit Charges Inpatient E&M: 55657 Subs Hosp L2 Reason for Visit Reason for Visit: Diagnoses Noninfective gastroenteritis and colitis, unspecified (08/13/22) Hemorrhage of anus and rectum (08/13/22) Unspecified abdominal pain (08/13/22)
[2022-08-14 09:50] VITALS: BP 109/60; PULSE 47; RESP 12; TEMP 36.7; O2SAT 95
[2022-08-14] MEDS: Lactated Ringers 1,000 ML 125 ML IV ×2 (09:51→16:52)
--- NOTE | 2022-08-14 10:25 | CASEMGMT ---
RN NATHAN Face to Face with patient for initial transition planning/care coordination assessment. RN CM introduced self and role at [facility]. Patient lying in bed, alert and oriented. Patient willing to participate in assessment and is able to answer all questions appropriately. Care providers, pharmacy, and demographics verified. Patient wishes to discharge home, denies need for home health at this time. Patient states he has no further needs or concerns at this time. CM to follow for discharge planning needs that may arise. PCP: Dr. Cristiano Yuan [place] Specialists: none Preferred Pharmacy: [facility] Insurance: [place] [facility] Prescription Benefit: [place] Living Will/HPOA: none LNOK: Living Arrangements: Patient lives with in a 2 story home with bed and bath on first floor. 4 steps and railing to enter the home. Patient states he is independent at home. Transportation: self, DME/HHC: Patient has shower chair, cane, walker, at home. No previous HHC or SNF Disposition Plan: Patient to discharge home with family support and follow-up plans in place. Grace FIGUEROA, RN, CM
[2022-08-14 15:50] VITALS: BP 117/63; PULSE 49; RESP 16; TEMP 36.8; O2SAT 95
[2022-08-14 21:50] VITALS: BP 120/68; PULSE 55; RESP 17; TEMP 36.6; O2SAT 96
[2022-08-15] MEDS: Lactated Ringers 1,000 ML 125 ML IV ×3 (00:28→16:47)
[2022-08-15 03:50] VITALS: BP 115/67; PULSE 64; RESP 18; TEMP 37.1; O2SAT 97
[2022-08-15 07:22] LABS: Absolute Lymphocyte Count 2.95 X10^3/uL (0.83-4.51); Absolute Neutrophil Count 6.5 X10^3/uL (2.0-7.7); Basophil# 0.08 X10^3/uL; Basophil% 0.7 % (0-1); Eosinophil# 0.32 X10^3/uL; Hematocrit 37.7 % (40-54); Hemoglobin 12.6 g/dL (13.0-16.5); Lymphocyte # 2.95 X10^3/ul (0.83-4.51); Lymphocyte % 27.3 % (19-41); Mean Corp Hgb Conc 33.4 g/dL (32-36); Mean Corpuscular Hgb 32.1 pg (27.0-32.0); Mean Corpuscular Volume 95.9 fL (80-94); Mean Platelet Vol. 10.9 fl (6.2-12.0); Monocyte# 0.86 X10^3/uL; Monocyte% 7.9 % (0-10); NRBC Flagged by Analyzer 0 % (0-5); Neutrophil # 6.54 X10^3/uL (2.7-7.7); Neutrophil % 60.5 % (47-70); Platelet Count 218 K/mm3 (150-450); RBC Distribution Width CV 12.5 % (11.6-14.6); RBC Distribution Width SD 44.6 fl (35.1-43.9); Red Blood Count 3.93 M/mm3 (4.6-6.2); White Blood Count 10.8 K/mm3 (4.4-11.0)
--- NOTE | 2022-08-15 07:26 | PCM.PN.SRG ---
Subjective Subjective Patient reports no discomfort this morning. He has not had any bloody bowel movements overnight. Objective Data Objective Data Vital Signs: Vital Signs Temp Pulse Resp BP Pulse Ox O2 Del Method 98.8 F 64 18 115/67 97 Room Air 08/15/22 03:50 08/15/22 03:50 08/15/22 03:50 08/15/22 03:50 08/15/22 03:50 08/15/22 03:50 Oxygen Delivery Method Room Air Weight: 158 lb 11.725 oz Body Mass Index (BMI) 22.0 Intake & Output: Intake and Output for Last 24 Hours 08/13/22 08/14/22 08/15/22 23:59 23:59 23:59 Intake Total 1000 / 1000 7.08 / 2116.08 1099.58 / 1099.58 Balance 1000 / 1000 2116.08 / 2116. 1099.58 / 1099.58 Lab / Micro Data Result Diagrams: 08/14/22 03:05 08/14/22 03:05 Physical Exam Const oriented x3 Resp normal respiratory effort GI soft to palpation and non-tender Assessment & Plan Assessment/Plan (1) Colitis with rectal bleeding: PLAN: Patient had colitis with bleeding which is likely ischemic colitis. Patient reports no pain today. He has had no blood per rectum. His vitals are all stable. I will start a clear liquid diet. If he tolerates this he may advance to a regular diet either later today or tomorrow with likely discharge tomorrow. Meek Thompson MD Pager: [facility] [address] [place] [address], [address] [place] [phone] Office:
[2022-08-15 07:54] LABS: Anion Gap 12 (5-15); BUN 11 mg/dL (7-18); BUN/Creat Ratio 11.8 RATIO (10-20); Calcium,Total 8.5 mg/dL (8.5-10.1); Chloride 110 mmol/L (98-107); Creatinine, Serum 0.93 mg/dL (0.70-1.30); EST Glomerular Filtration Rate 87 mL/min (>60); Est Glom Filt Rate - Afr Amer 105 mL/min (>60); Estimated Creatinine Clearance 80.65 ml/min; Glucose 63 mg/dL (74-106); Potassium 3.8 mmol/L (3.5-5.1); Sodium Level 141 mmol/L (136-145)
[2022-08-15 08:45] VITALS: BP 106/64; PULSE 58; RESP 16; TEMP 36.6; O2SAT 94
[2022-08-15 13:58] VITALS: BP 110/61; PULSE 67; RESP 16; TEMP 36.7; O2SAT 97
[2022-08-15 16:45] VITALS: BP 131/81; PULSE 54; RESP 16; TEMP 36.9; O2SAT 99
--- NOTE | 2022-08-15 16:48 | PN.HOSP_ITS ---
Reason for Visit Reason for Visit: Diagnoses Elevated white blood cell count, unspecified (08/13/22) Noninfective gastroenteritis and colitis, unspecified (08/13/22) Hemorrhage of anus and rectum (08/13/22) Unspecified abdominal pain (08/13/22) Subjective Subjective Patient states he is feeling better. No further abdominal pain. Started clear liquids this morning and tolerated them without difficulty. Plan is to advance today and if doing well probable discharge home tomorrow per general surgery's recommendations. Objective Data Objective Data Vital Signs: Vital Signs Temp Pulse Resp BP Pulse Ox O2 Del Method 98.4 F 54 L 16 131/81 H 99 Room Air 08/15/22 16:45 08/15/22 16:45 08/15/22 16:45 08/15/22 16:45 08/15/22 16:45 08/15/22 16:45 Oxygen Delivery Method Room Air Weight: 72 kg Body Mass Index (BMI) 22.0 Intake & Output: Intake and Output for Last 24 Hours 08/13/22 08/14/22 08/15/22 23:59 23:59 23:59 Intake Total 1000 / 1000 2117.08 / 2117.08 3015.83 / 3015.83 Balance 1000 / 1000 2117.08 / 2117.08 3015.83 / 3015.83 Lab / Micro Data Result Diagrams: 08/15/22 06:35 08/15/22 06:35 Labs: Laboratory Results - last 24 hr 08/15/22 06:35: WBC 10.8, RBC 3.93 L, Hgb 12.6 L, Hct 37.7 L, MCV 95.9 H, MCH 32.1 H, MCHC 33.4, RDW Std Deviation 44.6 H, RDW Coeff of Tasha 12.5, Plt Count 218, MPV 10.9, Immature Gran % (Auto) 0.600, Neut % (Auto) 60.5, Lymph % (Auto) 27.3, [place] % (Auto) 7.9, Eos % (Auto) 3.0, Baso % (Auto) 0.7, Absolute Neuts (auto) 6.5, Absolute Lymphs (auto) 2.95, Nucleated RBC % 0 08/15/22 06:35: Sodium 141, Potassium 3.8, Chloride 110 H, Carbon Dioxide 19.0 L , Anion Gap 12, BUN 11, Creatinine 0.93, Estim Creat Clear Calc 80.65, Est GFR (MDRD) Af Amer 105, Est GFR (MDRD) Non-Af 87, BUN/Creatinine Ratio 11.8, Glucose 63 L, Calcium 8.5 Micro: Microbiology 08/15/22 12:00 Stool Enteric Bacteriology - Final 08/15/22 12:00 Stool Stool Lactoferrin - Final Physical Exam Const alert, oriented x3 and no apparent distress Constitutional Narrative: Very pleasant, middle upper age white male, appears comfortable nontoxic, watching television HEENT head/scalp atraumatic and moist oral mucous membranes Head and Scalp: normocephalic Resp normal respiratory effort, no retractions, no use of accessory muscles and clear to auscultation bilaterally Resp Narrative: Diffusely diminished but clear Auscultation: Negative for crackles, rhonchi or wheezes Cardio regular rate, regular rhythm, S1 normal heart sound, S2 normal heart sound, no murmurs, no rub, no gallops and no clicks GI normal to inspection, nondistended, normoactive bowel sounds, soft to palpation and non-tender Extremity no clubbing, cyanosis or edema Extremity Narrative: 2+ pedal pulses Neuro oriented x3, moves all extremities and no focal motor deficits Speech: speech normal Assessment & Plan Assessment/Plan (1) Colitis with rectal bleeding: (2) Abdominal pain: (3) Leukocytosis: PLAN: Plan Acute colitis with rectal bleeding -CT of the abdomen pelvis shows left-sided colitis -Patient had rectal bleeding for 1 day prior to presentation -Hemoglobin is stable without any anemia. Ischemic colitis is suspected -Clear liquid diet this morning and advance as tolerated -Thus far patient is tolerating well -Discontinue IV fluids -Continue IV antibiotics as ordered and patient will likely need oral antibiotics at discharge -Outpatient colonoscopy will be pursued after discharge -General surgery following-appreciate input Abdominal pain -Resolved Hypertension -Home ramipril on hold--> anticipate reinitiation at discharge -As needed hydralazine for systolic pressure greater than 07/14/1979 Hyperlipidemia -Therapeutic substitution for home lovastatin with atorvastatin 10 mg daily Suspected COPD -Patient with evidence edematous changes on CAT scan -Recommend outpatient pulmonary follow-up with outpatient PFTs Tobacco abuse -Recommend cessation -Nicotine patch available if needed DVT prophylaxis -SCDs for now -deferred secondary to rectal bleeding on presentation Charges/Coding Visit Charges Inpatient E&M: 23721 Subs Hosp L2
[2022-08-15] MEDS: Atorvastatin Calcium 10 MG Tablet PO (21:14)
[2022-08-15 22:45] VITALS: BP 137/75; PULSE 57; RESP 17; TEMP 37.2; O2SAT 97
[2022-08-16 04:05] VITALS: BP 131/79; PULSE 50; RESP 16; TEMP 36.8; O2SAT 96
[2022-08-16 06:46] LABS: Absolute Lymphocyte Count 2.71 X10^3/uL (0.83-4.51); Absolute Neutrophil Count 6.8 X10^3/uL (2.0-7.7); Basophil# 0.06 X10^3/uL; Basophil% 0.5 % (0-1); Eosinophil# 0.31 X10^3/uL; Eosinophils% 2.8 % (0-5); Hematocrit 39.8 % (40-54); Hemoglobin 13.6 g/dL (13.0-16.5); Lymphocyte # 2.71 X10^3/ul (0.83-4.51); Lymphocyte % 24.7 % (19-41); Mean Corp Hgb Conc 34.2 g/dL (32-36); Mean Corpuscular Hgb 32.3 pg (27.0-32.0); Mean Corpuscular Volume 94.5 fL (80-94); Mean Platelet Vol. 10.7 fl (6.2-12.0); Monocyte% 9.1 % (0-10); NRBC Flagged by Analyzer 0 % (0-5); Neutrophil # 6.84 X10^3/uL (2.7-7.7); Neutrophil % 62.4 % (47-70); Platelet Count 244 K/mm3 (150-450); RBC Distribution Width CV 12.6 % (11.6-14.6); RBC Distribution Width SD 43.7 fl (35.1-43.9); Red Blood Count 4.21 M/mm3 (4.6-6.2)
[2022-08-16 07:12] LABS: Anion Gap 6 (5-15); BUN 11 mg/dL (7-18); BUN/Creat Ratio 10.9 RATIO (10-20); Calcium,Total 8.6 mg/dL (8.5-10.1); Chloride 113 mmol/L (98-107); Creatinine, Serum 1.01 mg/dL (0.70-1.30); EST Glomerular Filtration Rate 79 mL/min (>60); Est Glom Filt Rate - Afr Amer 95 mL/min (>60); Estimated Creatinine Clearance 74.26 ml/min; Glucose 99 mg/dL (74-106); Potassium 3.9 mmol/L (3.5-5.1); Sodium Level 143 mmol/L (136-145)
[2022-08-16 08:25] VITALS: BP 146/80; PULSE 51; RESP 16; TEMP 36.6; O2SAT 95
--- NOTE | 2022-08-16 10:40 | PN.SURG_ITS ---
Subjective Subjective Patient tolerated diet with no abdominal pain. He has not had any blood per rectum. Objective Data Objective Data Vital Signs: Vital Signs Temp Pulse Resp BP Pulse Ox O2 Del Method 97.9 F 51 L 16 146/80 H 95 Room Air 08/16/22 08:25 08/16/22 08:25 08/16/22 08:25 08/16/22 08:25 08/16/22 08:25 08/16/22 08:30 Oxygen Delivery Method Room Air Weight: 158 lb 11.725 oz Body Mass Index (BMI) 22.0 Intake & Output: Intake and Output for Last 24 Hours 08/14/22 08/15/22 08/16/22 23:59 23:59 23:59 Intake Total 2117.08 / 211.08 4830.00 / 4830.00 160 / 160 Balance 2117.08 / 2117.08 4830.00 / 4830.00 160 / 160 Lab / Micro Data Result Diagrams: 08/16/22 06:26 08/16/22 06:26 Labs: Laboratory Results - last 24 hr 08/16/22 06:26: WBC 11.0, RBC 4.21 L, Hgb 13.6, Hct 39.8 L, MCV 94.5 H, MCH 32.3 H, MCHC 34.2, RDW Std Deviation 43.7, RDW Coeff of Tasha 12.6, Plt Count 244, MPV 10.7, Immature Gran % (Auto) 0.500, Neut % (Auto) 62.4, Lymph % (Auto) 24.7, [place] % (Auto) 9.1, Eos % (Auto) 2.8, Baso % (Auto) 0.5, Absolute Neuts (auto) 6.8, Absolute Lymphs (auto) 2.71, Nucleated RBC % 0 08/16/22 06:26: Sodium 143, Potassium 3.9, Chloride 113 H, Carbon Dioxide 24.0, Anion Gap 6, BUN 11, Creatinine 1.01, Estim Creat Clear Calc 74.26, Est GFR (MDRD) Af Amer 95, Est GFR (MDRD) Non-Af 79, BUN/Creatinine Ratio 10.9, Glucose 99, Calcium 8.6 Micro: Microbiology 08/15/22 12:00 Stool Enteric Bacteriology - Final 08/15/22 12:00 Stool Stool Lactoferrin - Final Physical Exam Const oriented x3 Resp normal respiratory effort GI soft to palpation and non-tender Assessment & Plan Assessment/Plan (1) Colitis with rectal bleeding: PLAN: Patient is doing well today. He tolerated regular diet with no blood in stool. He may be discharged home and follow-up with me for elective colonoscopy. Meek Thompson MD Pager: [facility] [address] [place] [address] [address] [place] [address] Office:
--- NOTE | 2022-08-16 11:08 | CASEMGMT ---
ASHLEY EVANS face to face with pt. Pt lying in bed and alert. Pt denies any dc needs or concerns with his discharge at this time. Hayley Graham RN CM
--- NOTE | 2022-08-16 11:52 | PCM.DC.SUM ---
Providers Date of Admission: 08/13/22 Date of Discharge: 08/16/22 Primary Care Physician: [facility] Consultations 08/14/22 00:28 Consult: General Surgery Routine Consulting Provider: Meek Thompson Reason for Consult: GI bleed EMERGENT Consult: No MD Notified: Yes Date Notified: 08/14/22 Time Notified: 06:45 Method of Notification: Text Reason For Visit: GI BLEED Diagnosis Discharge Diagnosis (1) Colitis with rectal bleeding: Status: Acute Code(s): K52.9 - Noninfective gastroenteritis and colitis, unspecified; K62.5 - Hemorrhage of anus and rectum Medications at Discharge Home Medications lovastatin 40 mg tablet 40 mg PO DAILY cholesterol 05/14/22 ramipril 5 mg capsule 5 mg PO DAILY blood pressure 05/14/22 Hospital Course Operations None Procedures None Summary of Care Provided Minutes Spent on Discharge: 30 Hospital Course: Mr. Sun is a 67-year-old white male who presented to the emergency department at [facility] on 08/13/2022 with bloody stools x1 day. The patient evidently ate a fish sandwich the day prior to presentation and then the morning of presentation he started having abdominal pain and bloody stool. He denied any fever or chills and his has had no symptoms and ate the same meal. He had an anoscopy in the emergency department that showed no evidence of internal hemorrhoids but bloody mucoid material was noted around the scope when it was pulled out of his rectum. Vital signs on presentation were unremarkable and his hemoglobin was 15. A CT of his abdomen pelvis showed mild pulmonary emphysematous changes and atelectasis along with mild to moderate fatty infiltration of his liver and thickening of his descending colon with stranding suggestive of left-sided colitis. General surgery was consulted and they suspect that this is most likely ischemic colitis given the calcifications noted at takeoff vessels to his colon. He was given bowel rest for 24 hours, IV fluids, antiemetics, and pain medications. He was doing well and a clear liquid diet was started on a.m. of 08/15/2022. He did well with this and we were able to advance his diet to a regular diet by the evening. On the a.m. of 08/16/2022 he was having no further bloody bowel movements and no abdominal pain. Hemoglobin on the day of discharge was 13.6. General surgery would like him to follow-up as an outpatient for an elective colonoscopy to evaluate his colon better after is completely healed. I have asked him to follow-up with Dr. Thompson within the next month to be scheduled for this. He is to follow-up with his primary care physician within the next 1 to 2 weeks. He was discharged home in stable condition on 08/16/2022. No medication changes were made. I would recommend he be evaluated with outpatient PFTs as I do highly suspect he has COPD that is undiagnosed. Discharge diagnoses: Acute ischemic colitis Hematochezia-resolved Abdominal pain-resolved Hyper tension Hyperlipidemia Suspected COPD Tobacco abuse Physical Exam Narrative Patient states he is feeling well. Tolerated a regular diet. No further rectal bleeding and abdominal pain has resolved Const alert, oriented x3 and no apparent distress Constitutional Narrative: Very pleasant, middle upper age white male, appears comfortable nontoxic, watching television General Appearance: cooperative, comfortable, well kempt and well developed Orientation / Consciousness: awake, oriented to person, oriented to place and oriented to time HEENT normocephalic, head/scalp atraumatic and moist oral mucous membranes Resp normal respiratory effort, no retractions, no use of accessory muscles and clear to auscultation bilaterally Resp Narrative: Diffusely diminished but clear Auscultation: Negative for crackles, rhonchi or wheezes Cardio regular rate, regular rhythm, S1 normal heart sound, S2 normal heart sound, no murmurs, no rub, no gallops and no clicks GI normal to inspection, nondistended, normoactive bowel sounds, soft to palpation and non-tender Extremity no clubbing, cyanosis or edema Extremity Narrative: 2+ pedal pulses Neuro oriented x3, moves all extremities and no focal motor deficits Speech: speech normal Psych affect normal Weight / BMI Weight Weight: 72 kg Body Mass Index (BMI) 22.0 ABG / Lab / Microbiology Data Result Diagrams: 08/16/22 06:26 08/16/22 06:26 Laboratory: Laboratory Results - last 24 hr 08/16/22 06:26: WBC 11.0, RBC 4.21 L, Hgb 13.6, Hct 39.8 L, MCV 94.5 H, MCH 32.3 H, MCHC 34.2, RDW Std Deviation 43.7, RDW Coeff of Tasha 12.6, Plt Count 244, MPV 10.7, Immature Gran % (Auto) 0.500, Neut % (Auto) 62.4, Lymph % (Auto) 24.7, [place] % (Auto) 9.1, Eos % (Auto) 2.8, Baso % (Auto) 0.5, Absolute Neuts (auto) 6.8, Absolute Lymphs (auto) 2.71, Nucleated RBC % 0 08/16/22 06:26: Sodium 143, Potassium 3.9, Chloride 113 H, Carbon Dioxide 24.0, Anion Gap 6, BUN 11, Creatinine 1.01, Estim Creat Clear Calc 74.26, Est GFR (MDRD) Af Amer 95, Est GFR (MDRD) Non-Af 79, BUN/Creatinine Ratio 10.9, Glucose 99, Calcium 8.6 Microbiology: Microbiology 08/15/22 12:00 Stool Enteric Bacteriology - Final 08/15/22 12:00 Stool Stool Lactoferrin - Final D/C Instructions Discharge Diet: Light diet - advance as tolerated Discharge Activity: Return to Normal Activity Return to work on: 08/17/22 Meaningful Use Info Meaningful Use Diagnoses (Choose all that apply): None applicable Discharge Plan Admission Admit Date/Time: 08/13/22 22:23 Primary Reason for Your Visit: Hematochezia Attending Provider: Valeri Enriquez Primary Care Provider: [facility],[place] Consulting Providers: Shanel Barrera ; Meek Thompson Discharge Orders/Prescriptions Prescriptions: Continued lovastatin 40 mg Tablet 40 mg PO DAILY ramipril 5 mg Capsule 5 mg PO DAILY Referrals / Follow Up: Meek Thompson MD [Med Staff - Active Staff] - Within 1 Month [facility],[place] [Primary Care Provider] - Within 1 Month Disposition Disposition (needs filled in before D/C Order can be placed): Home, Self Care Charges/Coding Visit Charges Inpatient E&M: 30437 Disch Hosp
== END 2022-08-16 13:55 | disposition home or self-care (01) | DRG 395 ==
LOC: ED 19:40 → PCU 22:33
PROVIDERS: Physician Assistant; Admitting Provider Internal Medicine; Emergency Provider Emergency Medicine; Visit Provider Internal Medicine
DX: K55.039 Acute (reversible) ischemia of large intestine, extent unspecified (principal); E78.5 Hyperlipidemia, unspecified; K76.0 Fatty (change of) liver, not elsewhere classified; J44.9 Chronic obstructive pulmonary disease, unspecified; I10 Essential (primary) hypertension; F17.210 Nicotine dependence, cigarettes, uncomplicated
CPT/HCPCS: 36415; 74177; 80048; 80053; 83605; 83630; 85025; 87506; 99283; 99406; J7030; J7050; J7120; Q9967; A4216; J2405

== ENCOUNTER 2023-01-19 10:02 | Day surgery (SDC) | payer OTHER, SELFPAY ==
[2023-01-19] VITALS (12 sets, daily range): BP systolic 73–113; BP diastolic 43–79; PULSE 55–70; RESP 16–18; TEMP 36–36.6; O2SAT 95–100; BMI 21.2
[2023-01-19] MEDS: Lactated Ringers 1,000 ML 15 ML IV (10:30)
--- NOTE | 2023-01-19 10:52 | PCM.HP.BLA ---
History and Physical Date of Admission: 01/19/23 Intake Vital Signs 08/14/2310:20 12/19/2307:32 Height 5 ft 11 in 5 ft 11 in Weight: 157 lb 2 oz BMI 21.9 BP 128/83 H Blood Pressure Location Rt brachial Position Sitting Respiration 17 Pulse 76 Pulse Source Monitor Temp 97.4 F L Temp Source Temporal Pulse Oximetry (%) 99 Oxygen Delivery Method room air Intake Visit Reasons: COLONOSCOPY Chief Complaint: colonoscopy Allergies No Known Allergies Allergy (Verified 12/18/22 08:36) COUNTS INCLUDE 234 BEDS AT THE [facility] Medical History BPH (benign prostatic hyperplasia) High cholesterol Hyperlipidemia Hypertension Ischemic colitis Left sided colitis without complications Rectal bleed Surgical History History of abdominal surgery Family History Father Heart diseaseMother CVA (cerebral vascular accident) Social History household members: spouse Smoking Status: Current every day smoker tobacco type: cigarettes alcohol intake: never substance use type: does not use HPI HPI HPI: Patient is a 67-year-old male here for follow-up. He was in the hospital in August with colitis. He was instructed to follow-up for elective colonoscopy to evaluate. Patient currently denies any abdominal pain or blood in the stool. He reports he is having normal bowel movements. Overall he is feeling well. ROS General General: No weight change, appetite, fatigue, colon cancer, breast cancer or weakness HEENT HEENT: No difficulty swallowing, eye injury, eye surgery, swollen glands or hoarseness Endo Endocrine: No thyroid disease, diabetes mellitus, thyroid cancer, Hair loss, heat intolerance or cold intolerance Skin Skin: No rash or changing moles Breast Breast: No left breast lump, right breast lump, nipple discharge, breast pain, abnormal mammogram, abnormal US or breast enlargement Musc Musculoskeletal: Yes back problems; No arthritis, rheumatoid arthritis, gout or joint pain Cardio Cardiovascular: Yes high blood pressure; No murmur, pacemaker, heart disease, atrial fibrillation, heart attack, heart stent, palpitations, shortness of breat with exertion or chest pain Psych Psychiatric: No depression, anxiety or hearing voices Resp Respiratory: Yes shortness of breath, No sleep apnea, Yes cough, Yes COPD, No asthma, No emphysema and No wheezing Gastro Gastrointestinal: No abdominal pain, No nausea or vomiting, No diarrhea, No constipation, No blood in stool, No acid reflux, Yes hemorrhoids, No ulcers, No gallbladder problem and No black,tarry stools Diogenes Hematologic: No blood thinners, No blood disorders, No bleeding, No anemia and No blood clots Neuro Neurologic: No system reviewed and no additional complaints, except as documented, No as per HPI, No abnormal gait, No abnormal hearing, No abnormal movements, No abnormal speech, No behavioral changes, No burning sensations, No confusion, No convulsions, No disequilibrium, No dizziness, No localized weakness, No frequent falls, No headache(s), No lack of coordination, No loss of vision, No memory loss, No numbness, No other visual disturbances, No radicular pain, No restless legs, No sensory deficit, No syncope, No tingling, No tremor(s), No weakness and No other Exam Const General: cooperative Orientation: alert and oriented x3 HENMT Head: normal to inspection Neck Neck: normal visual inspection and full ROM Chest Chest palpation & inspection: normal inspection of the chest Resp Effort & Inspection: normal respiratory effort Auscultation: clear to auscultation bilaterally Cardio Rate: regular rate Rhythm: regular rhythm GI Inspection: non-distended Palpation: soft and nontender Skin General: no rashes or lesions noted Neuro General: patient alert and patient oriented x3 Extrem General: full ROM Psych Appearance: grossly normal Mental Status: mental status grossly normal Assessment and Plan Assessment and Plan (1) Colitis with rectal bleeding: Status: Resolved Plan: Patient has a history of colitis with bleeding back in August. He has been doing well since. He is here to follow-up for colonoscopy. [facility] and I will give him further instructions and I will perform a colonoscopy. I explained endoscopy in detail to the patient. I explained the risks including but not limited to stroke or heart attack with anesthesia, perforation of the GI tract, bleeding, infection. I explained that any of these could necessitate further emergency surgery. The patient understands and all questions were answered sufficiently. The patient wishes to proceed with procedure. Meek Thompson MD Pager: [facility] [address] [place] [address], [address] [place] [address] Office: I have examined the patient and the H&P has been reviewed. There are no clinical changes since date of exam.
--- NOTE | 2023-01-19 11:00 | COLBX_PTH ---
PATIENT: KELLI ÁLVAREZ LOC: EN U#:[id number] AGE/SX: 67/M ROOM: RE01/19/[address]: Dr. Meek Thompson MD : 1955 BED: DIS: 01/19/2023 SPEC #: [id number] RECD: 01/21/23 14:20 STATUS: LA MOOSE #: [id number] HEIDE: 01/19/23 11:[address]: Meek Thompson DEPT: SURGICAL PATHOLOGY RECD BY: Arsalan Fong ENTERED: 01/22/23 07:08 SP TYPE: COLON BX OTHR DR: Dr. Cristiano Friedman MD Tissues: Sigmoid colon biopsy Procedures: Surgery Specimen Level IV HEADER OPERATION: Colonoscopy (MAC), polypectomy PRE-OP DIAGNOSIS: Colitis with rectal bleeding TISSUE SUBMITTED: Polyp sigmoid colon MICROSCOPIC DIAGNOSIS Polyp sigmoid colon, polypectomy: Consistent with hyperplastic polyp with marked cautery artifacts. SJ:siis 01/23/2023 MICROSCOPIC DESCRIPTION Slides are reviewed. GROSS DESCRIPTION Received in fixative is one container labeled with the patient's name and designated polyp sigmoid colon. The specimen consists of one irregular fragment of light pagan soft tissue that measures 0.3 x 0.2 x 0.1 cm. The specimen is totally submitted in one cassette. / MAGALYS:siis 01/22/2023 TC:5 CPT: 30050
--- NOTE | 2023-01-19 12:03 | OP.CCLET_ITS ---
01/19/2023 Cristiano Friedman Md Re : Colonoscopy procedure for Cesar Sun Dear Dr. Friedman This procedure was performed on Thursday, January 19, 2023. My impressions and recommendations are as follows: Impressions : - One polyp in the sigmoid colon, removed with a hot snare. Resected and retrieved. - The examination was otherwise normal on direct and retroflexion views. Recommendations : - Discharge patient to home. - Resume previous diet. - Continue present medications. - Await pathology results. - Repeat colonoscopy in 5 years for surveillance based on pathology results. My findings are described in the full procedure note, which is enclosed. If I can be of further assistance, please feel free to contact me at Doctor phone number(s): , Work: . Sincerely, Meek Thompson MD 01/19/2023 12:02:26 PM This report has been signed electronically.
--- NOTE | 2023-01-19 12:03 | OP.COLON_ITS ---
Patient Name: Cesar Sun Procedure Date: 01/19/2023 11:39 AM Date of : 1955 Age: 67 Procedure: Colonoscopy Indications: Follow-up of colitis Providers: Meek Thompson MD Medicines: Monitored Anesthesia Care Patient Profile: This is a 67 year old male. Refer to note in patient chart for documentation of history and physical. Last Colonoscopy: none. The patient's first colonoscopy is today. Complications: No immediate complications. Procedure: Pre-Anesthesia Assessment: - Prior to the procedure, a History and Physical was performed, and patient medications and allergies were reviewed. The patient's tolerance of previous anesthesia was also reviewed. The risks and benefits of the procedure and the sedation options and risks were discussed with the patient. All questions were answered, and informed consent was obtained. Prior Anticoagulants: The patient has taken no previous anticoagulant or antiplatelet agents. After reviewing the risks and benefits, the patient was deemed in satisfactory condition to undergo the procedure. After I obtained informed consent, the scope was passed under direct vision. Throughout the procedure, the patient's blood pressure, pulse, and oxygen saturations were monitored continuously. The colonoscope was introduced through the anus and advanced to the cecum, identified by appendiceal orifice and ileocecal valve. The colonoscopy was performed without difficulty. The patient tolerated the procedure well. The quality of the bowel preparation was good. Scope In: 11:45:55 AM Scope Withdrawal Time 0 hours 7 minutes 21 seconds Scope Out: 11:58:46 AM Total Procedure Duration Time 0 hours 12 minutes 51 seconds Findings: A polyp was found in the sigmoid colon. The polyp was removed with a hot snare. Resection and retrieval were complete. The exam was otherwise without abnormality on direct and retroflexion views. Impression: - One polyp in the sigmoid colon, removed with a hot snare. Resected and retrieved. - The examination was otherwise normal on direct and retroflexion views. Recommendation: - Discharge patient to home. - Resume previous diet. - Continue present medications. - Await pathology results. - Repeat colonoscopy in 5 years for surveillance based on pathology results. Procedure Code(s): --- Professional --- 53373, Colonoscopy, flexible; with removal of tumor(s), polyp(s), or other lesion(s) by snare technique Diagnosis Code(s): --- Professional --- D12.5, Benign neoplasm of sigmoid colon K52.9, Noninfective gastroenteritis and colitis, unspecified CPT copyright 2017 [employer]. All rights reserved. The codes documented in this report are preliminary and upon certified professional coder review may be revised to meet current compliance requirements. Meek Thompson MD 01/19/2023 12:02:26 PM This report has been signed electronically. Number of Addenda: 0 Note Initiated On: 01/19/2023 11:39 AM
== END 2023-01-19 13:22 | disposition home or self-care (01) ==
LOC: EN 10:06 → AC 10:06
PROVIDERS: PCP Internal Medicine; Referring Provider Internal Medicine; Visit Provider Surgery
PROC: 0DJD8ZZ Inspection of Lower Intestinal Tract, Via Natural or Artificial Opening Endoscopic (ICD-10-PCS; CPT 45378; principal; 2023-01-19 10:55)
DX: K52.9 Noninfective gastroenteritis and colitis, unspecified (principal); K62.5 Hemorrhage of anus and rectum; D12.5 Benign neoplasm of sigmoid colon; E78.00 Pure hypercholesterolemia, unspecified; N40.0 Benign prostatic hyperplasia without lower urinary tract symptoms; I10 Essential (primary) hypertension
CPT/HCPCS: 45385; 88305; J7120; J2405